=== PATIENT | female | born 1980 | race African-American/Black ===

== ENCOUNTER 2016-06-26 13:17 | Emergency (ER) ==
[2016-06-26 13:30] VITALS: BP 137/99
--- NOTE | 2016-06-26 14:13 | PROVIDER DOCUMENTATION ---
HPI-Abdominal Pain/GI Problem - General Chief Complaint: Post Op Complaint Stated Complaint: POST OP COMPLAINT Time Seen by Provider: 06/26/16 13:21 Source: patient Allergies/Adverse Reactions: Patient Allergies Allergy/AdvReac Type Severity Reaction Status Date / Time No Known Allergies Allergy Verified 06/04/16 11:17 - History of Present Illness-ABD Nature of Presenting Problems: patient is a 36 y/o F that presents to the ER with LLQ pain nausea, fever/chills , and vaginal discharge( clear) that began 3 to 4 days ago. She is post-op on having tubes removed from ovaries by . She was d/c home. About 3 to 4 days ago patient developed abdominal pain( LLQ) she has some clear vaginal discharge as well as some scant bleeding. Abdominal Pain Onset Location: reports: LLQ Pain Radiation: reports: no radiation Quality of Pain: reports: aching, cramping, dull Severity in ED: reports: moderate Onset/Duration: reports: gradual, 3 days ago, 4 days ago Timing: reports: still present, constant Activities at Onset: reports: other (post op 06/13/16) Modifying Factors: improves with: nothing Associated Symptoms: reports: fever/chills, genitourinary problems, loss of appetite, nausea. denies: constipation, diarrhea, shortness of breath, vomiting Similar Symptoms Previously?: No Recently seen or treated by another doctor?: Yes Review of Systems - Adult - REVIEW OF SYSTEMS - ADULT Constitutional: reports: chills. denies: fever Eyes: reports: no symptoms reported Ears, Nose, Mouth & Throat: denies: ear pain, throat pain, throat swelling Cardiovascular: denies: chest pain, palpitations, syncope Respiratory: denies: cough, shortness of breath, wheezing Gastrointestinal: reports: abdominal pain, nausea. denies: diarrhea, vomiting Genitourinary: reports: discharge. denies: hematuria, urgency Musculoskeletal: denies: back pain, joint pain, neck pain Integumentary: reports: no symptoms reported Neurological: reports: no symptoms reported Psychiatric: reports: no symptoms reported Endocrine: reports: no symptoms reported Hematologic/Lymphatic: reports: no symptoms reported Allergic/Immunologic: reports: no symptoms reported All Other Systems: Reviewed and Negative Past History - Adult - PAST MEDICAL HISTORY-ADULT Review of Records: reports: Old Records Reviewed, Nursing Assessment Review, Medications Reviewed Respiratory: reports: asthma - PRIOR SURGERIES/PROCEDURES Surgical/Procedure History: reports: none - IMMUNIZATION STATUS Childhood Immunizations: See Nurse Assessment Flu Vaccine: See Nurse Assessment - FAMILY HISTORY Family History: reviewed, not pertinent - SOCIAL HISTORY Smoking: cigarettes, less than 1 pack/day Alcohol Use Frequency: occasionally Living Situation: family Physical Exam-General - PHYSICAL EXAM-ADULT Initial Vital Signs Reviewed: Yes - CONSTITUTIONAL General Appearance: alert, mild distress - EYES Eyes: PERRL/EOMI, pink conjunctivae - HEAD, EARS, NOSE, MOUTH & THROAT HENMT: normocephalic/atraumatic, moist mucous membranes, normal ENT inspection - NECK Neck: full range of motion, normal inspection. negative: lymphadenopathy, meningismus - RESPIRATORY Respiratory: lungs clear, normal breath sounds, no respiratory distress, no accessory muscle use - CARDIOVASCULAR Cardiovascular: regular rate, rhythm, no edema, no murmur - GASTROINTESTINAL (ABDOMEN) Abdominal Exam: normal bowel sounds, soft, no organomegaly, no pulsatile mass, rebound (LLQ), tenderness (LLQ). negative: distended, guarding, rigid, hernia, mass - MUSCULOSKELETAL Back Exam: no CVA tenderness, no vertebral tenderness Extremity: normal range of motion, non-tender, normal inspection, no pedal edema , no calf tenderness, normal capillary refill - SKIN Integumentary: normal color, warm/dry - NEUROLOGIC Neurologic: grossly normal, no motor/sensory deficits - PSYCHIATRIC Psych/Mental Status: normal mood/affect, normal thought content, normal thought process, oriented x 3 Progress - PLAN OF CARE/RESULTS Progress/Plan/Lab Results: plan of care-labs, ct scan abd/pelv, meds 1500-Patient was not in room per CT scan 1515-Patient had eloped from ER Departure - Departure Time of Disposition Order: 15:42 DIAGNOSIS: Post-op pain, Abdominal pain Disposition: ELOPEMENT 07 Certified Medical Emergency: Emergent Condition: Stable Attestation - Scribe Verification/Attestation Scribe:: Tomi Lewis Acting as Scribe for:: Rin Mills Scribe documention review:: This chart was documented by a scribe and accurately reflects the service the provider performed and the decisions made by the provider. Physician Attestation - Physician Attestation I, the provider, attest to the following statement:: Rin Mills Physician documentation Attestation:: This documentation recorded by the scribe accurately reflects the service I personally performed and the decisions made by me.
[2016-06-26] MEDS ORDERED: ZOFRAN IV ONE (14:25)
[2016-06-26] MEDS ORDERED: MORPHINE IV ONE (14:25)
[2016-06-26] MEDS ORDERED: NS 1,000 ML IV ONE (14:25)
== END 2016-06-26 14:20 | disposition left against medical advice (07) ==
LOC: P.ED 13:17
DX: G89.18 Other acute postprocedural pain (principal); R10.32 Left lower quadrant pain; R11.0 Nausea; N89.8 Other specified noninflammatory disorders of vagina; R68.83 Chills (without fever); R10.814 Left lower quadrant abdominal tenderness; F17.210 Nicotine dependence, cigarettes, uncomplicated
CPT/HCPCS: 99282; J2270; J2405; J7030